=== PATIENT | female | born 1965 | race African-American/Black ===

== ENCOUNTER 2020-04-18 10:26 | Emergency (ER) | payer BC ==
--- NOTE | 2020-04-18 11:39 | RAD ---
PORTABLE CHEST: Date: 04/18/2020 INDICATION: Cough. Comparison made to prior exam from 2014. FINDINGS: There are hazy infiltrates seen in both lower lungs consistent with pneumonia. Hazy ground-glass infi ltrate is probably also present in the peripheral left mid lung field. COVID pneumonia should be excl uded. IMPRESSION: Evidence of hazy bilateral infiltrates. POS: AH
== END 2020-04-18 13:00 | disposition home or self-care (01) ==
LOC: ERS 10:26
DX: J18.9 Pneumonia, unspecified organism (principal); I10 Essential (primary) hypertension; Z79.899 Other long term (current) drug therapy
CPT/HCPCS: 71045; 93005